=== PATIENT | female | born 1985 | race Caucasian/White ===

== ENCOUNTER 2017-11-15 11:13 | Emergency (ER) | payer OTHER ==
[2017-11-15 11:22] VITALS: TEMP 98.7; BMI 23.0
[2017-11-15] MEDS ORDERED: METOCLOPRAMIDE HCL INJECTION 10 MG/2 ML VIAL IVPB ONE (12:54)
[2017-11-15] MEDS ORDERED: SODIUM CHLORIDE 1,000 ML IV STA (12:54)
[2017-11-15] MEDS ORDERED: KETOROLAC TROMETHAMINE 30 MG/1 ML VIAL IVPUSH ONE (12:54)
[2017-11-15] MEDS ORDERED: KETOROLAC TROMETHAMINE 15 MG/ML VIAL ONE (13:18)
[2017-11-15] MEDS ORDERED: METOCLOPRAMIDE HCL INJECTION 10 MG/2 ML VIAL ONE (13:18)
[2017-11-15 13:28] LABS: BASO % 0.2 % (0-2.0); EOS % 0.1 % (0-4.5); HEMATOCRIT 38.2 % (32.4-45.2); HEMOGLOBIN 12.4 GM/dL (10.7-15.3); LYMPH % 5.9 % (8-40); MCH 30.2 pg (25.7-33.7); MCHC 32.5 g/dl (32.0-36.0); MEAN PLT VOLUME 7.9 fl (7.5-11.1); MONO % 7.3 % (3.8-10.2); NEUT % 86.5 % (42.8-82.8); PLATELET COUNT 224 K/MM3 (134-434); RBC 4.11 M/mm3 (3.60-5.2)
[2017-11-15 13:33] LABS: URINE APPEARANCE SLCLOUDY; URINE BILIRUBIN NEGATIVE (NEGATIVE); URINE BLOOD 2+ (NEGATIVE); URINE COLOR YELLOW; URINE GLUCOSE (UA) NEGATIVE (NEGATIVE); URINE KETONE TRACE (NEGATIVE); URINE LEUK ESTERASE NEGATIVE (NEGATIVE); URINE NITRITE NEGATIVE (NEGATIVE); URINE UROBILINOGEN NEGATIVE mg/dL (0.2-1.0)
[2017-11-15 13:35] LABS: URINE PROTEIN 1+ (NEGATIVE)
--- NOTE | 2017-11-15 13:37 | PDOC ---
History of Present Illness <Danny Barajas - Last Filed: 11/15/17 14:22> - History of Present Illness Initial Comments: 11/15/17 13:34 "The patient is a 32 year old female with a significant PMH of asthma who presents to the emergency department with flu-like symptoms including body aches , headache, nausea, vomiting, diffuse abdominal pain, and some diarrhea beginning approximately yesterday. 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 She denies receiving the flu shot this year. She denies fever currently. The patient denies chest pain, shortness of breath, and dizziness. Denies dysuria, frequency, urgency and hematuria. Allergies: NKDA, Shrimp. Past surgical history: x2. Social history: No reported cigarette, alcohol, or drug use. PCP: None reported. " <Vito Trejo - Last Filed: 11/16/17 18:56> - General Chief Complaint: Nausea/Vomiting Stated Complaint: BODYACHES, VOMITING Time Seen by Provider: 11/15/17 12:38 Past History <Danny Barajas - Last Filed: 11/15/17 14:22> - Past Medical History Asthma: Yes COPD: No - Immunization History Immunization Up to Date: Yes - Suicide/Smoking/Psychosocial Hx Smoking Status: No Smoking History: Never smoked Have you smoked in the past 12 months: No Number of Cigarettes Smoked Daily: 0 Information on smoking cessation initiated: No Hx Alcohol Use: No Drug/Substance Use Hx: No Substance Use Type: None <Vito Trejo - Last Filed: 11/16/17 18:56> - Past Medical History Allergies/Adverse Reactions: Allergies Allergy/AdvReac Type Severity Reaction Status Date / Time No Known Drug Allergies Allergy Verified 11/15/17 11:19 SHRIMP Allergy Uncoded 11/15/17 11:19 Home Medications: Ambulatory Orders No Home Medications 0 dose .ROUTE UTDICT 02/09/14 Nitrofurantoin Monohyd/M-Cryst [Nitrofurantoin [place]-Mcr 100 mg] 100 mg PO BID # 14 capsule 04/01/16 Phenazopyridine HCl [Pyridium] 200 mg PO TID PRN #12 tablet 04/01/16 Review of Systems - Review of Systems Comments:: 11/15/17 13:36 "GENERAL/CONSTITUTIONAL: No fever or chills. No weakness. HEAD, EYES, EARS, NOSE AND THROAT: No change in vision. No ear pain or discharge. No sore throat. CARDIOVASCULAR: No chest pain or shortness of breath. RESPIRATORY: No cough, wheezing, or hemoptysis. GASTROINTESTINAL: (+) Vomiting (+) Nausea. (+) Diffuse abdominal pain. (+) Diarrhea. No constipation. GENITOURINARY: No dysuria, frequency, or change in urination. MUSCULOSKELETAL: (+) Body aches. SKIN: No rash NEUROLOGIC: (+) Headache. No vertigo, loss of consciousness, or change in strength. ENDOCRINE: No increased thirst. No abnormal weight change. HEMATOLOGIC/LYMPHATIC: No anemia, easy bleeding, or history of blood clots. ALLERGIC/IMMUNOLOGIC: No hives or skin allergy. " <Vito Trejo - Last Filed: 11/16/17 18:56> *Physical Exam - Vital Signs Last Vital Signs Temp Pulse Resp BP Pulse Ox 98.7 F 84 20 110/67 100 11/15/17 11:20 11/15/17 11:20 11/15/17 11:20 11/15/17 11:20 11/15/17 11:20 <Danny Barajas - Last Filed: 11/15/17 14:22> - Vital Signs Last Vital Signs Temp Pulse Resp BP Pulse Ox 98.7 F 84 20 110/67 100 11/15/17 11:20 11/15/17 11:20 11/15/17 11:20 11/15/17 11:20 11/15/17 11:20 - Physical Exam Comments: 11/15/17 13:36 "GENERAL: Awake, alert, and fully oriented, in no acute distress HEAD: No signs of trauma EYES: PERRLA, EOMI, sclera anicteric, conjunctiva clear ENT: Auricles normal inspection, hearing grossly normal, nares patent, oropharynx clear without exudates. Moist mucosa NECK: Nontender, no stepoffs, Normal ROM, supple, no lymphadenopathy, JVD, or masses LUNGS: Breath sounds equal, clear to auscultation bilaterally. No wheezes, and no crackles HEART: Regular rate and rhythm, normal S1 and S2, no murmurs, rubs or gallops ABDOMEN: Soft, nontender, normoactive bowel sounds. No guarding, no rebound. No masses EXTREMITIES: Normal range of motion, no edema. No clubbing or cyanosis. No cords , erythema, or tenderness NEUROLOGICAL: Cranial nerves II through XII intact. 5/5 strength and sensation in all extremities, Normal speech, normal gait SKIN: Warm, Dry, normal turgor, no rashes or lesions noted. " <Vito Trejo - Last Filed: 11/16/17 18:56> ED Treatment Course - LABORATORY CBC & Chemistry Diagram: 11/15/17 13:07 11/15/17 13:07 - ADDITIONAL ORDERS Additional order review: Laboratory Results 11/15/17 11/15/17 13:07 13:07 Sodium 136 Potassium 3.9 Chloride 105 Carbon Dioxide 27 Anion Gap 4 L BUN 8 Creatinine 0.8 Creat Clearance w eGFR > 60 Random Glucose 99 Calcium 8.1 L Total Bilirubin 0.4 AST 15 ALT 23 Alkaline Phosphatase 52 Total Protein 7.3 Albumin 4.3 Urine Color Yellow Urine Appearance Slcloudy Urine pH 6.0 Ur Specific [place] 1.023 Urine Protein 1+ H Urine Glucose (UA) Negative Urine Ketones Trace H Urine Blood 2+ H Urine Nitrite Negative Urine Bilirubin Negative Urine Urobilinogen Negative Ur Leukocyte Esterase Negative Urine WBC (Auto) 2 Urine RBC (Auto) 8 Ur Epithelial Cells Moderate Urine Mucus Rare Urine HCG, Qual Negative 11/15/17 13:07 Influenza Types A,B Antigen (RICARDO) - Final Nasopharyngeal Swab - Final 11/15/17 13:07 RBC 4.11 MCV 93.0 MCHC 32.5 RDW 13.0 MPV 7.9 Neutrophils % 86.5 H Lymphocytes % 5.9 L D Monocytes % 7.3 Eosinophils % 0.1 D Basophils % 0.2 - Medications Given in the ED: ED Medications Discontinued Medications Generic Name Dose Route Start Last Admin Trade Name Freq PRN Reason Stop Dose Admin Sodium Chloride 1,000 mls @ 1,000 mls/hr 11/15/17 12:54 11/15/17 13:24 Normal Saline - IV 11/15/17 13:53 1,000 mls/hr ASDIR STA Administration Ketorolac Tromethamine 15 mg 11/15/17 12:54 11/15/17 13:25 Toradol Injection - IVPUSH 11/15/17 12:55 15 mg ONCE ONE Administration Metoclopramide HCl 10 mg 11/15/17 12:54 11/15/17 13:24 Reglan Injection - IVPB 11/15/17 12:55 10 mg ONCE ONE Administration <Danny Barajas - Last Filed: 11/15/17 14:22> - LABORATORY CBC & Chemistry Diagram: 11/15/17 13:07 11/15/17 13:07 - ADDITIONAL ORDERS Additional order review: 11/15/17 13:07 RBC 4.11 MCV 93.0 MCHC 32.5 RDW 13.0 MPV 7.9 Neutrophils % 86.5 H Lymphocytes % 5.9 L D Monocytes % 7.3 Eosinophils % 0.1 D Basophils % 0.2 - RADIOLOGY Radiology Studies Ordered: Category Date Time Status CHEST PA & LAT [RAD] Stat Radiology 11/15/17 12:54 Ordered - Medications Given in the ED: ED Medications Discontinued Medications Generic Name Dose Route Start Last Admin Trade Name Freq PRN Reason Stop Dose Admin Ketorolac Tromethamine 15 mg 11/15/17 12:54 11/15/17 13:25 Toradol Injection - IVPUSH 11/15/17 12:55 15 mg ONCE ONE Administration Metoclopramide HCl 10 mg 11/15/17 12:54 11/15/17 13:24 Reglan Injection - IVPB 11/15/17 12:55 10 mg ONCE ONE Administration <Vito Trejo - Last Filed: 11/16/17 18:56> Medical Decision Making - Medical Decision Making 11/15/17 13:37 32 F with influenza like illness. Pt well appearing with benign exam. - Labs, UA - CXR - Flu swab - IVF, toradol, reglan 11/15/17 14:27 Labs and CXR unremarkable. Flu swab negative. Pt reassessed- now feels much better s/p IVF and meds. Pt well appearing, vitals normal, clinically stable for DC. I discussed the physical exam findings, ancillary test results and final diagnoses with the patient. I answered all of the patient's questions. The patient was satisfied with the care received and felt comfortable with the discharge plan and treatment plan. The patient agrees to follow up with the primary care physician within 24-72 hours. <Vito Trejo - Last Filed: 11/16/17 18:56> *DC/Admit/Observation/Transfer - Attestations Scribe Attestion: 11/15/17 14:22 Documentation prepared by Danny Barajas, acting as medical office scheduler for Vito Trejo MD. <Danny Barajas - Last Filed: 11/15/17 14:22> - Attestations Physician Attestion: 11/15/17 14:30 I, Dr. Vito Trejo MD, attest that this document has been prepared under my direction and personally reviewed by me in its entirety. I further attest, that it accurately reflects all work, treatment, procedures and medical decision -making performed by me. <Vito Trejo - Last Filed: 11/16/17 18:56> Diagnosis at time of Disposition: URI (upper respiratory infection) - Discharge Dispostion Disposition: HOME - Patient Instructions Printed Discharge Instructions: DI for Viral Syndrome Additional Instructions: Drink plenty of fluids to stay hydrated. Take tylenol or motrin as needed for fevers and pain. If you experience worsening vomiting, abdominal pain, high fevers, or any other concerning symptoms, return to the ER immediately. Otherwise, follow up with your primary care doctor within 1 week.
[2017-11-15 13:38] LABS: EPI CELLS MODERATE /HPF (FEW); URINE MUCUS RARE
[2017-11-15 13:53] LABS: ALBUMIN 4.3 g/dl (3.4-5.0); ANION GAP 4 (8-16); BILIRUBIN,TOTAL 0.4 mg/dL (0.2-1.0); BLOOD UREA NITROGEN 8 mg/dL (7-18); CALCIUM 8.1 mg/dL (8.5-10.1); CHLORIDE 105 mmol/L (98-107); CO2 27 mmol/L (21-32); CREATININE 0.8 mg/dL (0.55-1.02); GLUCOSE,RANDOM 99 mg/dL (74-106); POTASSIUM 3.9 mmol/L (3.5-5.1); SGOT/AST 15 U/L (15-37); SGPT/ALT 23 U/L (12-78); SODIUM 136 mmol/L (136-145); TOT PROT 7.3 g/dl (6.4-8.2)
[2017-11-15 13:54] LABS: ALK PHOS 52 U/L (45-117)
[2017-11-15 14:01] LABS: HCG,QUALITATIVE URINE NEGATIVE
[2017-11-15 14:50] VITALS: BP 111/62; PULSE 91
== END 2017-11-15 14:50 | disposition home or self-care (01) ==
LOC: JER 11:13
PROC: 3E0333Z Introduction of Anti-inflammatory into Peripheral Vein, Percutaneous Approach (ICD-10-PCS; principal; 2017-11-15)
PROC: 3E033GC Introduction of Other Therapeutic Substance into Peripheral Vein, Percutaneous Approach (ICD-10-PCS; 2017-11-15)
PROC: 3E0337Z Introduction of Electrolytic and Water Balance Substance into Peripheral Vein, Percutaneous Approach (ICD-10-PCS; 2017-11-15)
DX: J06.9 Acute upper respiratory infection, unspecified (principal); J45.909 Unspecified asthma, uncomplicated
CPT/HCPCS: 36415; 71046-TC-FY; 80053; 81003; 81015; 84703; 85025; 87086; 87804; 96361; 96374; 96375; 99282-25

== ENCOUNTER 2019-06-30 09:26 | Emergency (ER) | payer OTHER ==
[2019-06-30 09:31] VITALS: BP 117/83; PULSE 82; TEMP 98.2; BMI 24.1
--- NOTE | 2019-06-30 09:55 | PDOC ---
History of Present Illness - General Chief Complaint: Pain Stated Complaint: PAIN TO LT WRIST X 3 MONTHS Time Seen by Provider: 06/30/19 09:34 History Source: Patient - History of Present Illness Occurred: reports: other Severity: reports: moderate Upper Extremity Pain Location: left: wrist Past History - Past Medical History Allergies/Adverse Reactions: Allergies Allergy/AdvReac Type Severity Reaction Status Date / Time No Known Drug Allergies Allergy Verified 04/21/18 09:53 SHRIMP Allergy Uncoded 06/30/19 09:31 Home Medications: Ambulatory Orders Ibuprofen 800 mg PO TID #30 tablet 04/21/18 Asthma: Yes COPD: No - Immunization History Immunization Up to Date: Yes - Suicide/Smoking/Psychosocial Hx Smoking Status: No Smoking History: Current some day smoker Have you smoked in the past 12 months: Yes Number of Cigarettes Smoked Daily: 2 Information on smoking cessation initiated: No Hx Alcohol Use: No Drug/Substance Use Hx: No Substance Use Type: None Review of Systems - Review of Systems Constitutional: No: Chills, Fever Musculoskeletal: Yes: Joint Pain. No: Joint Swelling Neurological: No: Numbness, Paresthesia, Tingling, Weakness *Physical Exam - Vital Signs Last Vital Signs Temp Pulse Resp BP Pulse Ox 98.2 F 82 17 117/83 97 06/30/19 09:28 06/30/19 09:28 06/30/19 09:28 06/30/19 09:28 06/30/19 09:28 - Physical Exam General Appearance: Yes: Appropriately Dressed. No: Apparent Distress HEENT: positive: Normal Voice Neck: positive: Supple Respiratory/Chest: negative: Respiratory Distress Extremity: positive: Normal Inspection, Normal Range of Motion. negative: Tender, Swelling Integumentary: positive: Dry, Warm Neurologic: positive: Fully Oriented, Alert, Normal Mood/Affect Medical Decision Making - Medical Decision Making 06/30/19 09:55 34 yo F, no sig hx, here with ongoing L wrist pain. Patient states for the past 3 months has had pain to volar aspect of wrist, more so with flexion and when doing daily activities. No joint swelling, numbness or tingling. Patient denies any specific trauma but states she has 4 children and is always doing a lot and think this is contributing to her pain. States she has not taken anything for pain because she does not like taking medication. Here for the first time for medical evaluation as symptoms are getting worse per patient See exam Chronic L wrist Possible 2/2 overuse Exam only remarkable for minimal pain to volar wrist on ROM Dc w/ OTC meds prn Ortho referral given *DC/Admit/Observation/Transfer Diagnosis at time of Disposition: Wrist pain Qualifiers: Laterality: left Qualified Code(s): M25.532 - Pain in left wrist - Discharge Dispostion Disposition: HOME Condition at time of disposition: Good - Referrals Referrals: Everett Wilder MD [Staff Physician] - - Patient Instructions Additional Instructions: Please use wrist brace for comfort as discussed. Please call Dr. Wilder of orthopedics to make appointment for further evaluation - Post Discharge Activity Forms/Work/School Notes: Back to Work
== END 2019-06-30 10:58 | disposition home or self-care (01) ==
LOC: JERFT 09:26
DX: M25.532 Pain in left wrist (principal); G89.29 Other chronic pain
CPT/HCPCS: 99281-25

== ENCOUNTER 2019-09-21 16:51 | Emergency (ER) | payer OTHER ==
[2019-09-21 17:00] VITALS: BP 126/87; PULSE 93; TEMP 98.6; BMI 22.8
[2019-09-21] MEDS ORDERED: ALBUTEROL SO4 2.5/IPRATROPIUM 0.5 INH SOL 3 ML VIAL.NEB. NEB ONE (17:00)
--- NOTE | 2019-09-21 17:00 | PDOC ---
Rapid Medical Evaluation Medical Evaluation: Allergies Allergy/AdvReac Type Severity Reaction Status Date / Time No Known Drug Allergies Allergy Verified 04/21/18 09:53 SHRIMP Allergy Uncoded 06/30/19 09:31 09/21/19 16:57 Pt presents for difficulty breathing, for 3 days. Pt has history of asthma Exam: Lungs CTAB, fair aeration to bases. No obvious respiratory distress, speaking in full sentences Orders: Duoneb Pt to proceed to the ER for further evaluation Discharge Disposition - Diagnosis Shortness of breath - Referrals - Patient Instructions - Post Discharge Activity
--- NOTE | 2019-09-21 19:56 | PDOC ---
History of Present Illness - General Chief Complaint: Shortness of Breath Stated Complaint: SOB Time Seen by Provider: 09/21/19 17:01 - History of Present Illness Initial Comments: 09/21/19 19:54 34-year-old female with a past medical history of asthma presents for evaluation of cough without systemic symptoms increasing over the last 3 days. Past History - Past Medical History Allergies/Adverse Reactions: Allergies Allergy/AdvReac Type Severity Reaction Status Date / Time No Known Drug Allergies Allergy Verified 09/21/19 16:59 SHRIMP Allergy Uncoded 09/21/19 16:59 Home Medications: Ambulatory Orders Albuterol Sulfate Inhaler - [Ventolin HFA Inhaler -] 1 - 2 inh PO Q4H #1 inhaler 09/21/19 Guaifenesin Dm [Mucinex Dm -] 1 tab PO BID #60 tab.er.12h 09/21/19 Asthma: Yes COPD: No - Immunization History Immunization Up to Date: Yes - Psycho Social/Smoking Cessation Hx Smoking Status: No Smoking History: Never smoked Have you smoked in the past 12 months: Yes Number of Cigarettes Smoked Daily: 2 Information on smoking cessation initiated: No Hx Alcohol Use: No Drug/Substance Use Hx: No Substance Use Type: None Review of Systems - Review of Systems Respiratory: Yes: Cough *Physical Exam - Vital Signs Last Vital Signs Temp Pulse Resp BP Pulse Ox 98.6 F 93 H 20 126/87 95 09/21/19 16:57 09/21/19 16:57 09/21/19 16:57 09/21/19 16:57 09/21/19 16:57 - Physical Exam 09/21/19 19:55 GENERAL: The patient is awake, alert, and fully oriented, in no acute distress. HEAD: Normal with no signs of trauma. EYES: sclera anicteric, conjunctiva clear. ENT: Ears normal tympanic membranes normal oropharynx clear uvula midline NECK: Normal range of motion LUNGS: Breath sounds equal, clear to auscultation bilaterally. No wheezes, and no crackles. HEART: S1 and S2 without murmur, rub or gallop. ABDOMEN: Soft, nontender, normoactive bowel sounds. No guarding, no rebound. No masses. EXTREMITIES: Normal range of motion, no edema. No clubbing or cyanosis. No cords, erythema, or tenderness. NEUROLOGICAL: Cranial nerves II through XII grossly intact. Normal speech, normal gait. PSYCH: Normal mood, normal affect. SKIN: Warm, Dry, normal turgor, no rashes or lesions noted. Medical Decision Making - Medical Decision Making 09/21/19 19:55 Benign examination. Patient states she recently got a new cat which may have contributed to her cough and exacerbation of symptoms she also started to smoke cigarettes again which again may have increased her symptoms. Mucinex and albuterol prescribed albuterol as a courtesy patient needed a refill. Follow- up with primary care physician Discharge - Discharge Information Problems reviewed: Yes Clinical Impression/Diagnosis: Shortness of breath, URI (upper respiratory infection) Condition: Stable Disposition: HOME - Admission No - Additional Discharge Information Prescriptions: Albuterol Sulfate Inhaler - [Ventolin HFA Inhaler -] 1 - 2 inh PO Q4H #1 inhaler Guaifenesin Dm [Mucinex Dm -] 1 tab PO BID #60 tab.er.12h - Follow up/Referral Referrals: Aida Varela MD [Staff Physician] - - Patient Discharge Instructions Patient Printed Discharge Instructions: Common Cold Additional Instructions: Please take the Mucinex as directed. Please use the albuterol as directed. Return to the emergency room for worsening symptoms. Without fail please follow -up with internal medicine in 2 to 3 days for further evaluation and treatment options. - Post Discharge Activity
== END 2019-09-21 20:18 | disposition home or self-care (01) ==
LOC: JER 16:51 → JERFT 16:51
PROC: 3E0F7GC Introduction of Other Therapeutic Substance into Respiratory Tract, Via Natural or Artificial Opening (ICD-10-PCS; principal; 2019-09-21)
DX: J06.9 Acute upper respiratory infection, unspecified (principal); Z87.09 Personal history of other diseases of the respiratory system; Z91.013 Allergy to seafood
CPT/HCPCS: 94640; 99281-25

== ENCOUNTER 2019-11-14 19:53 | Emergency (ER) | payer OTHER ==
[2019-11-14 19:58] VITALS: BMI 22.8
--- NOTE | 2019-11-14 20:32 | PDOC ---
Attending Attestation - Resident Resident Name: Sohail Simpson - ED Attending Attestation I have performed the following: I have examined & evaluated the patient, The case was reviewed & discussed with the resident, I agree w/resident's findings & plan - HPI HPI: 11/14/19 22:10 Pt comes with asthma exacerbation. She smokes a few cigarettes, and she has a hx of asthm,a. She is also allergic to cats and they recently got a cat in the home. She states that she works 2 jobs and she is under a great deal of stress , so she smokes. Pt has no fever and no flu like symptoms. She is coughing however. - Physicial Exam PE: 11/14/19 22:11 Clear lung [place] bilat, given the duoneb that she is on. Pt states that she has a sister who suffers with asthma, so she takes her sister's prednisone from time to time. Pt has nofever and no chills Heart RRR Abd soft NT ND no flank pain no rashes HEENT normal Pt has no pitting edema of legs. - Medical Decision Making 11/14/19 22:12 CXR; rx with duoneb/steroids/abx and home 11/14/19 22:20 Pt seems to have a retrocardiac infiltrate She has a normal chemistry CBC pending 11/14/19 22:44 Pulsox on RA is 94%; she will be treated with abx; presnisone and HFA ventolin
[2019-11-14] MEDS ORDERED: ALBUTEROL SO4 2.5/IPRATROPIUM 0.5 INH SOL 3 ML VIAL.NEB. NEB ONE ×4 (20:34→22:57)
[2019-11-14] MEDS ORDERED: predniSONE 20 MG TABLET (UD) PO ONE (20:40)
[2019-11-14] MEDS ORDERED: DEXAMETHASONE LIQUID 0.5 MG/5 ML PO ONE (20:50)
[2019-11-14] MEDS ORDERED: AZITHROMYCIN 250 MG TABLET PO ONE (20:50)
--- NOTE | 2019-11-14 20:50 | PDOC ---
History of Present Illness - General Chief Complaint: Asthma Stated Complaint: SOB Time Seen by Provider: 11/14/19 20:31 History Source: Patient Exam Limitations: No Limitations - History of Present Illness Initial Comments: 11/14/19 20:43 34 yo female pmh asthma presents to the ED with productive cough and chest tightness. Pt states since her last visit to the ED for cough and asthma symptoms (09/21/2019) she has had persistent productive cough of yellow sputum and worsening chest tightness with SOB reminding her of past asthma exacerbations. Pt takes Ventolin at home requiring much more treatments daily than in the past, ran out yesterday and currently does not have a PCP to have medications refilled. Pt denies hx of intubation, no home O2 use and never been admitted for asthma. Last asthma exacerbation 8 years ago. Denies F/C/N/V , CP, back pain, recent travel, sick contacts, calf tenderness, changes in bowel or bladder habits. Past History - Past Medical History Allergies/Adverse Reactions: Allergies Allergy/AdvReac Type Severity Reaction Status Date / Time No Known Drug Allergies Allergy Verified 09/21/19 16:59 SHRIMP Allergy Uncoded 09/21/19 16:59 Home Medications: Ambulatory Orders Albuterol Sulfate Inhaler - [Ventolin HFA Inhaler -] 1 - 2 inh PO Q4H #1 inhaler 09/21/19 Albuterol Sulfate Inhaler - [Ventolin Hfa Inhaler -] 1 - 2 inh PO Q4H #1 inhaler 11/14/19 Azithromycin [Zithromax -] 250 mg PO DAILY #4 tablet 11/14/19 predniSONE [Deltasone -] 40 mg PO DAILY #10 tablet 11/14/19 Asthma: Yes COPD: No - Immunization History Immunization Up to Date: Yes - Psycho Social/Smoking Cessation Hx Smoking Status: No Smoking History: Never smoked Have you smoked in the past 12 months: Yes Number of Cigarettes Smoked Daily: 2 Hx Alcohol Use: No Drug/Substance Use Hx: No Substance Use Type: None Review of Systems - Review of Systems Constitutional: No: Chills, Fever Respiratory: Yes: Shortness of Breath, Wheezing, Productive cough Cardiac (ROS): Yes: Chest Tightness. No: Chest Pain, Edema, Palpitations ABD/GI: No: Constipated, Diarrhea, Nausea, Vomiting : No: Burning, Dysuria, Frequency, Flank Pain Musculoskeletal: No: Back Pain Integumentary: No: Change in Color, Pallor Neurological: No: Headache, Numbness, Paresthesia, Weakness *Physical Exam - Vital Signs Last Vital Signs Temp Pulse Resp BP Pulse Ox 98.2 F 93 H 19 125/70 92 L 11/14/19 19:54 11/14/19 19:54 11/14/19 19:54 11/14/19 19:54 11/14/19 19:54 - Physical Exam General Appearance: Yes: Nourished, Appropriately Dressed. No: Apparent Distress HEENT: positive: EOMI Neck: positive: Supple. negative: Carotid bruit Respiratory/Chest: positive: Wheezing (diffuse). negative: Accessory Muscle Use , Rapid RR, Crackles, Rales, Rhonchi, Stridor Cardiovascular: positive: Regular Rhythm, Regular Rate, S1, S2. negative: Edema , JVD, Murmur Vascular Pulses: Dorsalis-Pedis (R): 4+, Doralis-Pedis (L): 4+ Gastrointestinal/Abdominal: positive: Flat, Soft. negative: Pulsatile Mass, Protuberent, Distended, Guarding, Rebound, Tenderness Musculoskeletal: negative: CVA Tenderness Extremity: positive: Normal Capillary Refill, Normal Inspection Integumentary: positive: Normal Color, Dry, Warm Neurologic: positive: Fully Oriented, Alert, Normal Mood/Affect, Normal Response ED Treatment Course - LABORATORY CBC & Chemistry Diagram: 11/14/19 21:30 11/14/19 21:30 Medical Decision Making - Medical Decision Making 11/14/19 20:57 34 yo female pmh asthma presents to the ED with productive cough and chest tightness. Pt states since her last visit to the ED for cough and asthma symptoms (09/21/2019) she has had persistent productive cough of yellow sputum and worsening chest tightness with SOB reminding her of past asthma exacerbations. Pt takes Ventolin at home requiring much more treatments daily than in the past, ran out yesterday and currently does not have a PCP to have medications refilled. Pt denies hx of intubation, no home O2 use and never been admitted for asthma. Last asthma exacerbation 8 years ago. Denies F/C/N/V , CP, back pain, recent travel, sick contacts, calf tenderness, changes in bowel or bladder habits. vitals show hypoxia 92% RA, at bedside on 2L 96% Pt diffusely wheezing, given steroids and duo nebs Will do basic labs and CXR since symptoms lasting over 1 month, pt is an asthmatic and hypoxic 11/14/19 22:38 Labs WNL, no elevated WBC CXR no acute infiltrate given azithro Pt admits to marked improvement after duo nebs and steroids, no longer wheezing Pt safe for DC home with steroids and refill of ventolin inhaler Discharge - Discharge Information Problems reviewed: Yes Clinical Impression/Diagnosis: Asthma Condition: Stable Disposition: HOME - Admission No - Additional Discharge Information Prescriptions: Albuterol Sulfate Inhaler - [Ventolin Hfa Inhaler -] 1 - 2 inh PO Q4H #1 inhaler Azithromycin [Zithromax -] 250 mg PO DAILY #4 tablet - Follow up/Referral - Patient Discharge Instructions Patient Printed Discharge Instructions: Asthma -- Adult Additional Instructions: Please see the primary doctor referred to you and visit them ongoing concerns regarding refilling your medications. Take the steroids, antibiotics and inhaler as prescribed. Return to the ER for new or concerning symptoms including but not limited to: difficulty breathing, fevers, inability to eat or drink. Thank you - Post Discharge Activity Work/Back to School Note: Back to Work
[2019-11-14] MEDS ORDERED: predniSONE 20 MG TABLET (UD) ONE (20:51)
[2019-11-14] MEDS ORDERED: DEXAMETHASONE SOD PHOSPHATE 10 MG/1 ML VIAL ONE (21:01)
[2019-11-14] MEDS ORDERED: AZITHROMYCIN 250 MG TABLET ONE (21:11)
[2019-11-14 21:44] LABS: EOS % 6.4 % (0-4.5); HEMATOCRIT 40.9 % (32.4-45.2); HEMOGLOBIN 13.9 GM/dL (10.7-15.3); LYMPH % 40.2 % (8-40); MCH 31.4 pg (25.7-33.7); MEAN CELL VOLUME 92.4 fl (80-96); MEAN PLT VOLUME 7.9 fl (7.5-11.1); NEUT % 45.4 % (42.8-82.8); PLATELET COUNT 281 K/MM3 (134-434); RBC 4.43 M/mm3 (3.60-5.2); RDW 12.7 % (11.6-15.6); WHITE BLOOD COUNT 7.8 K/mm3 (4.0-10.0)
[2019-11-14 22:15] LABS: ALBUMIN 3.9 g/dl (3.4-5.0); BILIRUBIN,TOTAL 0.2 mg/dL (0.2-1); BLOOD UREA NITROGEN 11.6 mg/dL (7-18); CALCIUM 8.7 mg/dL (8.5-10.1); CREATININE 0.8 mg/dL (0.55-1.3); TOT PROT 6.9 g/dl (6.4-8.2)
[2019-11-14 22:53] VITALS: BP 114/57; PULSE 80; TEMP 97.8
== END 2019-11-14 23:16 | disposition home or self-care (01) ==
LOC: JER 19:53
PROC: 3E0F7GC Introduction of Other Therapeutic Substance into Respiratory Tract, Via Natural or Artificial Opening (ICD-10-PCS; principal; 2019-11-14)
PROC: 3E0F7GC Introduction of Other Therapeutic Substance into Respiratory Tract, Via Natural or Artificial Opening (ICD-10-PCS; 2019-11-14)
DX: J45.909 Unspecified asthma, uncomplicated (principal); Z72.0 Tobacco use
CPT/HCPCS: 36415; 71046-TC-FY; 80053; 85025; 94640; 99282-25

== ENCOUNTER 2020-08-29 06:38 | Emergency (ER) | payer OTHER ==
[2020-08-29 06:48] VITALS: TEMP 98.6; BMI 27.3
[2020-08-29] MEDS ORDERED: ACETAMINOPHEN 325 MG TABLET (FP) PO ONE (09:19)
[2020-08-29] MEDS ORDERED: ACETAMINOPHEN 325 MG TABLET (FP) ONE (09:27)
[2020-08-29] MEDS ORDERED: KETOROLAC TROMETHAMINE 15 MG/ML VIAL IM ONE (09:38)
[2020-08-29] MEDS ORDERED: FAMOTIDINE 20 MG TABLET PO ONE (09:40)
[2020-08-29] MEDS ORDERED: KETOROLAC TROMETHAMINE 60 MG/2 ML VIAL ONE (09:47)
[2020-08-29] MEDS ORDERED: FAMOTIDINE 20 MG TABLET ONE (09:47)
[2020-08-29 10:00] VITALS: BP 110/70; PULSE 76
== END 2020-08-29 10:00 | disposition home or self-care (01) ==
LOC: JER 06:38
PROC: 3E0233Z Introduction of Anti-inflammatory into Muscle, Percutaneous Approach (ICD-10-PCS; principal; 2020-08-29)
DX: M25.519 Pain in unspecified shoulder (principal)
CPT/HCPCS: 93005; 93010; 99284-25

== ENCOUNTER 2021-08-12 12:27 | Emergency (ER) | payer OTHER ==
[2021-08-12 12:35] VITALS: BP 106/73; PULSE 85; TEMP 98.4; BMI 22.8
[2021-08-12] MEDS ORDERED: IBUPROFEN 600 MG TABLET (FP) PO ONE ×2 (13:06)
== END 2021-08-12 13:13 | disposition home or self-care (01) ==
LOC: JERFT 12:27
PROC: 0H9FXZZ Drainage of Right Hand Skin, External Approach (ICD-10-PCS; principal; 2021-08-12)
DX: L03.011 Cellulitis of right finger (principal)
CPT/HCPCS: 99283-25

== ENCOUNTER 2022-07-25 18:13 | Emergency (ER) | payer OTHER ==
[2022-07-25 18:36] VITALS: BP 146/78; PULSE 96; RESP 20; TEMP 97.8; BMI 22.0
[2022-07-25] MEDS ORDERED: SODIUM CHLORIDE 0.9% 500 ML INFUS.BAG IV ONE (20:12)
[2022-07-25] MEDS ORDERED: KETOROLAC TROMETHAMINE 15 MG/ML VIAL IVPUSH ONE (20:12)
[2022-07-25] MEDS ORDERED: KETOROLAC TROMETHAMINE 15 MG/ML VIAL ONE (21:10)
[2022-07-25 21:45] LABS: BASO % 0.3 % (0-2.0); EOS % 0.6 % (0-4.5); HEMATOCRIT 38.6 % (32.4-45.2); HEMOGLOBIN 13.2 GM/dL (10.7-15.3); LYMPH % 11.4 % (8-40); MCH 31.7 pg (25.7-33.7); MCHC 34.3 g/dl (32.0-36.0); MEAN CELL VOLUME 92.5 fl (80-96); MEAN PLT VOLUME 7.6 fl (7.5-11.1); MONO % 7.1 % (3.8-10.2); NEUT % 80.6 % (42.8-82.8); PLATELET COUNT 255 10^3/uL (134-434); RBC 4.17 M/mm3 (3.60-5.2); RDW 12.4 % (11.6-15.6); WHITE BLOOD COUNT 10.4 K/mm3 (4.0-10.0)
[2022-07-25 21:49] LABS: EPI CELLS >36 /uL (0-25.1); HYALINE CASTS 2 /uL (0-3.1); URINE APPEARANCE CLOUDY; URINE BACTERIA 3068 /uL (0-1359); URINE BILIRUBIN NEGATIVE (NEGATIVE); URINE COLOR YELLOW; URINE GLUCOSE (UA) NEGATIVE (NEGATIVE); URINE KETONE NEGATIVE (NEGATIVE); URINE LEUK ESTERASE 2+ (NEGATIVE); URINE NITRITE NEGATIVE (NEGATIVE); URINE PROTEIN TRACE (NEGATIVE); URINE RBC 33 /uL (0-23.9); URINE UROBILINOGEN 0.2 mg/dL (0.2-1.0); URINE WBC 705 /uL (0-25.8)
[2022-07-25] MEDS ORDERED: CEFTRIAXONE 1,000 MG in DEXTROSE 5%-WATER - 50 ML IVPB ONE (21:51)
[2022-07-25 22:06] LABS: ALBUMIN 4.2 g/dl (3.4-5.0); CALCIUM 9.2 mg/dL (8.5-10.1)
[2022-07-25 22:07] LABS: BLOOD UREA NITROGEN 10.8 mg/dL (7-18)
[2022-07-25 22:08] LABS: CREATININE 0.8 mg/dL (0.55-1.3)
[2022-07-25 22:11] LABS: BILIRUBIN,TOTAL 0.6 mg/dL (0.2-1); TOT PROT 7.5 g/dl (6.4-8.2)
[2022-07-25] MEDS ORDERED: CEFTRIAXONE 1 GM/50 ML BAG ONE (22:16)
== END 2022-07-25 23:26 | disposition home or self-care (01) ==
LOC: JER 18:13
PROC: 3E033GC Introduction of Other Therapeutic Substance into Peripheral Vein, Percutaneous Approach (ICD-10-PCS; principal; 2022-07-25)
DX: K80.20 Calculus of gallbladder without cholecystitis without obstruction (principal); N39.0 Urinary tract infection, site not specified
CPT/HCPCS: 36415; 76705-TC; 80053; 81003; 84703; 85025; 87077; 87086; 87186; 99284-25

== ENCOUNTER 2022-08-14 04:22 | Day surgery (SDC) | payer OTHER ==
[2022-08-10 15:55] VITALS: BMI 21.7
[2022-08-14] MEDS ORDERED: DEXAMETHASONE SOD PHOSPHATE 4 MG/1 ML VIAL ONE (07:27)
[2022-08-14] MEDS ORDERED: LIDOCAINE HCL/PF 2% SDV 5ML VIAL ONE (07:27)
[2022-08-14] MEDS ORDERED: ROCURONIUM BROMIDE 50 MG/5 ML SYRINGE ONE (07:27)
[2022-08-14] MEDS ORDERED: PROPOFOL 20 ML ONE (07:27)
[2022-08-14] MEDS ORDERED: ONDANSETRON 4 MG/2 ML VIAL ONE ×2 (07:27→15:18)
[2022-08-14] MEDS ORDERED: MIDAZOLAM HCL 2 MG/2 ML SINGLE DOSE VIAL ONE (07:28)
[2022-08-14] MEDS ORDERED: BUPIVACAINE HCL/PF 0.25% (2.5MG/ML) 10 ML VIAL IJ ONE (07:38)
[2022-08-14] MEDS ORDERED: ceFAZolin SODIUM 1 GM VIAL IVPB ONE (08:18)
[2022-08-14] MEDS ORDERED: ceFAZolin SODIUM 1 GM VIAL ONE (08:18)
[2022-08-14] MEDS ORDERED: BUPIVACAINE HCL/PF 0.5% (5MG/ML) 10 ML VIAL IJ ONE ×2 (08:40)
[2022-08-14] MEDS ORDERED: LIDOCAINE HCL 1%, 10 MG/ML (20ML VIAL) INF ONE ×2 (08:40)
[2022-08-14] MEDS ORDERED: GLYCOPYRROLATE 0.2 MG/1 ML VIAL ONE (09:00)
[2022-08-14] MEDS ORDERED: NEOSTIGMINE METHYLSULFATE 0.5 MG/ML - 10 ML MDV ONE (09:00)
[2022-08-14] MEDS ORDERED: oxyCODONE HCL 5 MG TABLET PO PRN ×2 (09:04)
[2022-08-14] MEDS ORDERED: ONDANSETRON 4 MG/2 ML VIAL IVPUSH PRN (09:04)
[2022-08-14] MEDS ORDERED: LACTATED RINGERS SOLUTION 1,000 ML IV SCH (09:15)
[2022-08-14] MEDS ORDERED: KETOROLAC TROMETHAMINE 30 MG/1 ML VIAL IVPUSH ONE ×2 (10:00→10:38)
[2022-08-14] MEDS ORDERED: KETOROLAC TROMETHAMINE 30 MG/1 ML VIAL ONE (10:26)
[2022-08-14 12:02] VITALS: RESP 16
[2022-08-14] MEDS ORDERED: oxyCODONE HCL 5 MG TABLET ONE (13:52)
[2022-08-14 19:11] VITALS: BP 110/70; PULSE 70; TEMP 97.9
== END 2022-08-14 17:20 | disposition home or self-care (01) ==
LOC: JASU-SURG 04:22
PROVIDERS: ATTEND Surgery
PROC: 0FT44ZZ Resection of Gallbladder, Percutaneous Endoscopic Approach (ICD-10-PCS; principal; 2022-08-14 08:00)
DX: K80.10 Calculus of gallbladder with chronic cholecystitis without obstruction (principal)
CPT/HCPCS: 81025; 88304-TC; 94760

== ENCOUNTER 2022-09-09 16:54 | Emergency (ER) | payer OTHER ==
[2022-09-09 17:07] VITALS: BP 124/88; PULSE 100; RESP 18; TEMP 99; BMI 22.5
[2022-09-09] MEDS ORDERED: KETOROLAC TROMETHAMINE 15 MG/ML VIAL IM ONE (17:11)
[2022-09-09] MEDS ORDERED: KETOROLAC TROMETHAMINE 15 MG/ML VIAL ONE (17:14)
[2022-09-09] MEDS ORDERED: ACETAMINOPHEN 325 MG TABLET (FP) PO ONE (18:25)
[2022-09-09] MEDS ORDERED: ACETAMINOPHEN 325 MG TABLET (FP) ONE (18:28)
== END 2022-09-09 18:38 | disposition home or self-care (01) ==
LOC: FER 16:54
PROC: 3E0233Z Introduction of Anti-inflammatory into Muscle, Percutaneous Approach (ICD-10-PCS; principal; 2022-09-09)
DX: M79.10 Myalgia, unspecified site (principal)
CPT/HCPCS: 99283-25

== ENCOUNTER 2024-04-28 11:13 | Emergency (ER) | payer OTHER ==
[2024-04-28 11:25] VITALS: BMI 22.1
[2024-04-28 12:09] LABS: EPI CELLS >36 /uL (0-25.1); HYALINE CASTS 2 /uL (0-3.1); PH,URINE 6.5 (5.0-8.0); URINE APPEARANCE CLOUDY; URINE BACTERIA 4307 /uL (0-1359); URINE BILIRUBIN NEGATIVE (NEGATIVE); URINE COLOR YELLOW; URINE GLUCOSE (UA) NEGATIVE (NEGATIVE); URINE KETONE NEGATIVE (NEGATIVE); URINE LEUK ESTERASE NEGATIVE (NEGATIVE); URINE NITRITE NEGATIVE (NEGATIVE); URINE PROTEIN NEGATIVE (NEGATIVE); URINE UROBILINOGEN 0.2 mg/dL (0.2-1.0); URINE WBC 24 /uL (0-25.8)
[2024-04-28 12:24] LABS: URINE RBC 27 /uL (0-23.9)
[2024-04-28 12:33] LABS: BASO % 0.9 % (0-2.0); HEMATOCRIT 39.6 % (32.4-45.2); LYMPH % 41.1 % (8-40); MCH 30.9 pg (25.7-33.7); MCHC 32.9 g/dl (32.0-36.0); MEAN PLT VOLUME 7.3 fl (7.5-11.1); MONO % 7.4 % (3.8-10.2); NEUT % 46.6 % (42.8-82.8); PLATELET COUNT 276 10^3/uL (134-434); RBC 4.21 M/mm3 (3.60-5.2); RDW 13.5 % (11.6-15.6); WHITE BLOOD COUNT 5.2 K/mm3 (4.0-10.0)
[2024-04-28] MEDS: SODIUM CHLORIDE 0.9% 500 ML INFUS.BAG IV ONE (12:42)
[2024-04-28] MEDS: ACETAMINOPHEN 1000 MG/100 ML BAG IVPB ONE (12:43)
[2024-04-28] MEDS ORDERED: ACETAMINOPHEN 500 MG TABLET (FP) ONE (12:46)
[2024-04-28] MEDS ORDERED: KETOROLAC TROMETHAMINE 15 MG/ML VIAL ONE (12:46)
[2024-04-28] MEDS ORDERED: LIDOCAINE 4% PATCH TP ONE (12:46)
[2024-04-28 12:50] LABS: POTASSIUM 4.7 mmol/L (3.5-5.1)
[2024-04-28 12:52] LABS: CALCIUM 9.1 mg/dL (8.5-10.1)
[2024-04-28 12:53] LABS: ALBUMIN 3.9 g/dl (3.4-5.0); BLOOD UREA NITROGEN 10.6 mg/dL (7-18)
[2024-04-28 12:56] LABS: CREATININE 0.7 mg/dL (0.55-1.3)
[2024-04-28 12:57] LABS: BILIRUBIN,TOTAL 0.4 mg/dL (0.2-1); TOT PROT 7.2 g/dl (6.4-8.2)
[2024-04-28] MEDS: KETOROLAC TROMETHAMINE 15 MG/ML VIAL IVPUSH ONE (13:17)
[2024-04-28] MEDS: ACETAMINOPHEN 500 MG TABLET (FP) PO ONE (13:17)
[2024-04-28] MEDS: LIDOCAINE 4% PATCH TP ONE (13:17)
[2024-04-28] MEDS: SODIUM CHLORIDE 1,000 ML IV STA (13:17)
[2024-04-28 15:33] VITALS: BP 115/77; PULSE 82; RESP 18; TEMP 98.7
[2024-04-28] MEDS ORDERED: LIDOCAINE PATCH REMOVAL MC SCH (22:00)
== END 2024-04-28 15:33 | disposition home or self-care (01) ==
LOC: JER 11:13
PROC: 3E0333Z Introduction of Anti-inflammatory into Peripheral Vein, Percutaneous Approach (ICD-10-PCS; principal; 2024-04-28)
PROC: 3E0337Z Introduction of Electrolytic and Water Balance Substance into Peripheral Vein, Percutaneous Approach (ICD-10-PCS; 2024-04-28)
DX: R10.9 Unspecified abdominal pain (principal); N30.00 Acute cystitis without hematuria
CPT/HCPCS: 36415; 74176-TC; 80053; 81003; 84703; 85025; 87086; 96361; 96374; 99284-25

== ENCOUNTER 2024-08-04 14:16 | Emergency (ER) | payer OTHER ==
[2024-08-04 16:08] LABS: BASO % 0.7 % (0-2.0); EOS % 2.5 % (0-4.5); HEMATOCRIT 39.7 % (32.4-45.2); HEMOGLOBIN 13.2 GM/dL (10.7-15.3); LYMPH % 33.2 % (8-40); MCH 30.1 pg (25.7-33.7); MCHC 33.3 g/dl (32.0-36.0); MEAN CELL VOLUME 90.5 fl (80-96); MONO % 6.8 % (3.8-10.2); NEUT % 56.8 % (42.8-82.8); PLATELET COUNT 294 10^3/uL (134-434); RBC 4.39 M/mm3 (3.60-5.2); RDW 13.6 % (11.6-15.6)
[2024-08-04 16:10] LABS: PH,URINE 5.5 (5.0-8.0); URINE APPEARANCE CLEAR; URINE BILIRUBIN NEGATIVE (NEGATIVE); URINE COLOR DK YELLOW; URINE GLUCOSE (UA) NEGATIVE (NEGATIVE); URINE KETONE TRACE (NEGATIVE); URINE LEUK ESTERASE NEGATIVE (NEGATIVE); URINE NITRITE NEGATIVE (NEGATIVE); URINE PROTEIN TRACE (NEGATIVE)
[2024-08-04 16:12] LABS: HCG,QUALITATIVE URINE Negative
[2024-08-04 16:31] VITALS: BMI 22.1
[2024-08-04 16:40] LABS: POTASSIUM 4.4 mmol/L (3.5-5.1)
[2024-08-04 16:42] LABS: CALCIUM 9.7 mg/dL (8.5-10.1)
[2024-08-04 16:43] LABS: ALBUMIN 4.4 g/dl (3.4-5.0); BLOOD UREA NITROGEN 13.4 mg/dL (7-18)
[2024-08-04 16:46] LABS: CREATININE 0.7 mg/dL (0.55-1.3)
[2024-08-04 16:47] LABS: BILIRUBIN,TOTAL 0.7 mg/dL (0.2-1); TOT PROT 7.7 g/dl (6.4-8.2)
[2024-08-04] MEDS: ACETAMINOPHEN 325 MG TABLET (FP) PO ONE (17:26)
[2024-08-04] MEDS: IBUPROFEN 400 MG TABLET (FP) PO ONE (17:26)
[2024-08-04 17:28] VITALS: BP 105/75; PULSE 81; RESP 16; TEMP 97.9
[2024-08-04 17:30] LABS: HIV INTERPRETATION NEGATIVE (NEGATIVE)
== END 2024-08-04 17:32 | disposition home or self-care (01) ==
LOC: JER 14:16
DX: R53.83 Other fatigue (principal); R11.2 Nausea with vomiting, unspecified; R42 Dizziness and giddiness
CPT/HCPCS: 36415; 80053; 81003; 84703; 85025; 86803; 87086; 87389; 99283-25